=== PATIENT | female | born 1945 | race Caucasian/White ===

== ENCOUNTER 2022-12-19 08:13 | Outpatient (CLI) | payer OTHER, SELFPAY ==
[2022-12-19 14:34] LABS: Albumin* 4.6 g/dL (3.3-5.0)
[2022-12-19 14:35] LABS: Chloride* 106 mmol/L (96-114); Sodium* 141 mmol/L (135-149)
[2022-12-19 14:37] LABS: Bilirubin Total* 0.7 mg/dL (0.1-1.5); Carbon Dioxide* 26 mmol/L (20-32); Cholesterol* 238 mg/dL (90-199); Creatinine* 0.8 mg/dL (0.5-1.5); Estimated Glomerular Filt Rate 75 ml/min; Total Protein* 7.6 g/dL (6.0-8.3)
[2022-12-19 14:38] LABS: Alanine Aminotransferase* 15 U/L (4-35); Alkaline Phosphatase* 71 U/L (40-150); Aspartate Amino Transferase* 22 U/L (12-35); Blood Urea Nitrogen* 26 mg/dL (7-30); Calcium* 9.6 mg/dL (8.4-10.6); Glucose* 118 mg/dL (60-115); HDL Cholesterol* 83 mg/dL (>=50); LDL Cholesterol Calculated 122 mg/dL (<100); Potassium* 4.8 mmol/L (3.6-5.1); Triglycerides* 164 mg/dL (40-149)
[2022-12-19 15:23] LABS: TSH With Reflex to FT4* 0.985 uIU/mL (0.270-4.200)
== END 2022-12-19 08:14 | disposition home or self-care (01) ==
PROVIDERS: PCP Physician Assistant Medical; Visit Provider Physician Assistant Medical
DX: E11.9 Type 2 diabetes mellitus without complications (principal); E78.5 Hyperlipidemia, unspecified; F03.90 Unspecified dementia, unspecified severity, without behavioral disturbance, psychotic disturbance, mood disturbance, and anxiety; F41.9 Anxiety disorder, unspecified; I10 Essential (primary) hypertension; K21.9 Gastro-esophageal reflux disease without esophagitis; R79.89 Other specified abnormal findings of blood chemistry; E53.8 Deficiency of other specified B group vitamins
CPT/HCPCS: 80053; 80061; 84443

== ENCOUNTER 2024-02-13 13:46 | Emergency (ER) | payer OTHER, SELFPAY ==
[2024-02-13] VITALS (7 sets, daily range): BP systolic 164–183; BP diastolic 61–91; PULSE 59–67; TEMP 36.4; O2SAT 98–100; BMI 25.7
--- NOTE | 2024-02-13 14:09 | CT_ITS ---
Patient: SHAN BYRD Facility:?[facility] Patient ID:?[id number] Site Patient ID:?[id number]. Site :?[id number] Study:?CT-Head w/o-02/13/2024 2:50:30 PM Ordering Physician:Guevara Morris Final Report: INDICATION: Fall TECHNIQUE: Noncontrast axial CT of the head. Coronal and sagittal reformats. Bone and soft tissue algorithms. COMPARISON: MRI brain 01/02/2022 FINDINGS: Mild generalized cerebral volume loss. Scattered hypoattenuating foci throughout the supratentorial white matter, typical of mild chronic microangiopathy. No acute intracranial hemorrhage or extra-axial fluid collection. Cohn-white matter differentiation is grossly maintained. White matter attenuation is within normal limits. Calcific intracranial atherosclerotic plaquing. Empty sella configuration. Bony calvarium appears grossly intact. Hyperostosis frontalis interna. Visualized paranasal sinuses and mastoid air cells are clear. Bilateral lens implants. IMPRESSION: No skull fracture or acute intracranial hemorrhage identified. Please note that all CT scans at this facility use dose modulation, iterative reconstruction, and/or weight-based dosing when appropriate to reduce radiation dose to as low as reasonably achievable. Dictated by Remedios Ocampo MD @ 02/13/2024 3:17:08 PM Signed by:?Remedios Ocampo MD @02/13/2024 3:17:08 PM (Electronic Signature)
--- NOTE | 2024-02-13 14:11 | CT_ITS ---
Patient: SHAN BYRD Facility:?[facility] Patient ID:?[id number] Site Patient ID:?[id number]. Site :?1945 Study:?CT-Spine Cervical w/o-02/13/2024 2:50:33 PM Ordering Physician:Guevara Morris Final Report: Indication: Fall Technique: Noncontrast axial CT of the cervical spine with coronal and sagittal reformats. Comparison: Same-day CT head Findings: Straightening of the normal cervical lordosis. Trace anterolisthesis at C4-5, C5-6 and C6-7. No acute fracture identified. Craniocervical junction appears within normal limits. Bony ankylosis across the C2-3 facet joints, [id number]-right. 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 Degenerative disc changes and facet arthropathy. No high- grade neural foraminal or spinal canal stenosis. No suspicious findings identified in the paraspinal soft tissues. No apical pneumothorax. Impression: 1. No CT evidence of acute fracture or traumatic malalignment in the cervical spine. 2. Cervical spondylosis and ossification of the posterior longitudinal ligament, without high-grade neural foraminal or spinal canal stenosis. Please note that all CT scans at this facility use dose modulation, iterative reconstruction, and/or weight-based dosing when appropriate to reduce radiation dose to as low as reasonably achievable. Dictated by Remedios Ocampo MD @ 02/13/2024 3:20:40 PM Signed by:?Remedios Ocampo MD @02/13/2024 3:20:40 PM (Electronic Signature)
--- NOTE | 2024-02-13 14:11 | ED.GENADULT ---
HPI - General Adult General Chief complaint: Head Injury/Pain Stated complaint: Fall yest-hit head, loss of cons Time Seen by Provider: 02/13/24 13:48 History of Present Illness HPI narrative: Patient is a 78 year white female that has gotten up to go to the bathroom about 230 this morning and fell. She feels she might have transiently knocked herself out. She hit the back of her head. She had a small bump there are initially. She has had some mild left trapezius muscle tenderness but no really midline neck tenderness. She has been neurologically intact. She has a history of dementia. She is here with her grandson who is visiting her pretty much every day. She does live in assisted living in [place]. Initially she reported that she was on a blood thinner but does not appear to be from her medication list. She has been awake,, talking, her grandson reports she is in her usual state of health. She describes some mild low back discomfort from falling and pain in the back of her head. No focal neurologic complaints . She has a complicated history including dementia, type 2 diabetes, hypertension, hyperlipidemia, coronary artery disease with coronary artery stent, anxiety, GE reflux. Related Data Home Medications Medication Instructions Recorded Confirmed Bifidobacterium infantis 10.5 mg mg PO 09/11/23 09/11/23 (10 million cell) chewable tablet (Align) Lactobacillus cap PO 09/11/23 09/11/23 acidophilus-Bifidobac.animalis 2 billion cell capsule (TruBiotics) Previous Rx's Medication Instructions Recorded amlodipine 5 mg tablet 5 mg PO .HS #90 tabs 03/19/23 lancets #100 ea 06/25/23 sertraline 100 mg tablet 100 mg PO DAILY #90 tabs 11/27/23 lisinopril 20 mg tablet See Rx Instructions .Route 12/04/23 .COMPLEX #90 tabs metformin 500 mg tablet,extended 500 mg PO QDAY #90 tabs 12/04/23 release 24 hr omeprazole 40 mg capsule,delayed 40 mg PO QDAY #90 caps 12/04/23 release simvastatin 20 mg tablet 20 mg PO .Bedtime #90 tabs 12/04/23 blood sugar diagnostic (Accu-Chek #100 strips 01/25/24 Guide test strips) Allergies Allergy/AdvReac Type Severity Reaction Status Date / Time No Known Allergies Allergy Unknown Unknown Uncoded 10/17/23 10:35 Review of Systems Status of ROS: Reports: 6 or more systems reviewed and unremarkable except as noted in History and below PFSH FOR[facility] Medical History Amnesia ?R41.3 - Other amnesia (ICD-10) Personal history of nicotine dependence ?Z87.891 - Personal history of nicotine dependence (ICD-10) Surgical History Cataract extraction status of right eye ?Z98.41 - Cataract extraction status, right eye (ICD-10) Cataract extraction status of left eye ?Z98.42 - Cataract extraction status, left eye (ICD-10) History of tonsillectomy (01/17/11) ?Z90.89 - Acquired absence of other organs (ICD-10) History of hysterectomy (01/13/10) ?Z90.710 - Acquired absence of both cervix and uterus (ICD-10) History of coronary artery stent placement ?Z95.5 - Presence of coronary angioplasty implant and graft (ICD-10) History of colonoscopy (12/20/17) ?Z98.890 - Other specified postprocedural states (ICD-10) History of cholecystectomy ?Z90.49 - Acquired absence of other specified parts of digestive tract (ICD-10) History of cataract extraction with lens replacement History of appendectomy (01/17/11) ?Z90.49 - Acquired absence of other specified parts of digestive tract (ICD-10) Family History Other Heart disease High blood pressure Social History Narrative: Former smoker Does not use illicit drugs Consumes alcohol occasionally Smoking Status: Former smoker Little interest or pleasure in doing things: not at all Feeling down, depressed, or hopeless: several days Exam Narrative: Exam Narrative: Objective: Patient's vital signs show slightly elevated blood pressure systolic at 183, afebrile, O2 sat 100% on room air In general the patient is no apparent distress, alert orient x3, noncyanotic, responsive. HEENT shows small occipital hematoma no palpable step-off 1st fluctuance Neck is supple nontender in the midline mild trapezius muscle tenderness on the left Heart rhythm regular Abdomen benign Pelvis stable Upper lower extremities unremarkable normal strength sensation nonfocal neurologically Mild palpable low back discomfort, patient does report she feels discomfort in this area. No lower extremity findings, normal range of motion ins palpation yields no discomfort. Const: Vital Signs, click to edit/add: Vital Signs - 24 hr 02/13/24 13:54 02/13/24 14:13 02/13/24 14:15 Temperature 97.6 F Pulse Rate 62 66 Pulse Rate [Pulse Oximeter] 66 Blood Pressure Blood Pressure [Ri ght Upper Arm] 183/91 H Pulse Oximetry 100 99 98 Oxygen Delivery Me thod Room Air 02/13/24 14:30 02/13/24 14:34 02/13/24 15:13 Temperature Pulse Rate 65 67 60 Pulse Rate [Pulse Oximeter] Blood Pressure 164/61 H Blood Pressure [Ri ght Upper Arm] Pulse Oximetry 98 100 100 Oxygen Delivery Me thod 02/13/24 15:15 Temperature Pulse Rate 59 L Pulse Rate [Pulse Oximeter] Blood Pressure Blood Pressure [Ri ght Upper Arm] Pulse Oximetry 99 Oxygen Delivery Me thod Course Vital Signs Vital signs: Initial Vital Signs Temperature 97.6 F 02/13/24 13:54 Temperature Source Temporal Artery Scan 02/13/24 13:54 Pulse Rate 66 02/13/24 13:54 Pulse Rhythm Regular 02/13/24 13:54 Blood Pressure 183/91 H 02/13/24 13:54 Blood Pressure Mean 121 H 02/13/24 13:54 Blood Pressure Position Supine 02/13/24 13:54 Pulse Oximetry 100 02/13/24 13:54 Oxygen Delivery Method Room Air 02/13/24 13:54 Vital Signs Temperature 97.6 F 02/13/24 13:54 Pulse Rate 66 02/13/24 13:54 Blood Pressure 183/91 H 02/13/24 13:54 Pulse Oximetry 100 02/13/24 13:54 Oxygen Delivery Method Room Air 02/13/24 13:54 Temperature 97.6 F 02/13/24 13:54 Pulse Rate 59 L 02/13/24 15:15 Blood Pressure 164/61 H 02/13/24 14:34 Pulse Oximetry 99 02/13/24 15:15 Oxygen Delivery Method Room Air 02/13/24 13:54 Medications Administered Medications: Discontinued Medications Generic Name Dose Route Start Last Admin Trade Name Radha PRN Reason Stop Dose Admin Sodium Chloride 500 mls @ 500 mls/hr 02/13/24 14:08 02/13/24 15:51 0.9 % Sodium Chloride 500 Ml IV 02/13/24 15:07 Infused .Q1H ONE Infusion Medical Decision Making MDM Narrative Medical decision making narrative: [age] white female diabetic with dementia who was getting to the bathroom last night and apparently fell. May have been loss of consciousness transiently complains some left resist muscle pain some occipital pain and low back pain I think at this time just given the nature of her cognitive condition as well as her medical status would get a CT of her head neck for completeness, would also get a lumbar spine x-ray, will get an EKG, point of care troponin, laboratory studies disposition. Disposition pending findings. Please see addendum Addendum 3:20 p.m. patient's head and neck CT scan looks negative for acute injury. Her laboratory studies look reassuring thus far, her EKG by my read shows normal sinus rhythm with sinus arrhythmia nonspecific artifact noted. Her point of care troponin is negative. I think at this point she can safely be let go home continue present medications, recheck with regular doctor in the next couple of weeks as needed. Return sooner problems concerns difficulty. Also no rhythm arrhythmia is noted on her youth nutritional monitor Lab Data Labs: Lab Results 02/13/24 Range/Units 14:30 WBC 8.76 (4.50-11.00) K/uL RBC 4.04 (4.00-5.20) m/uL Hgb 12.6 (12.0-16.0) gm/dL Hct 37.7 (33.0-51.0) % MCV 93 (80-100) fL MCH 31 (26-34) pg MCHC 33 (32-36) gm/dL RDW Coeff of Kristy 13.9 (11.5-15.5) % Plt Count 187 (140-440) K/uL Neut % (Auto) 71.5 (42.0-72.0) % Lymph % (Auto) 20.3 (20-44) % Hendry % (Auto) 7.2 (0.0-11.0) % Eos % (Auto) 0.6 (0.0-7.0) % Baso % (Auto) 0.2 (0.0-3.0) % Neut # (Auto) 6.26 (1.7-7.0) K/uL Lymph # (Auto) 1.78 (0.90-2.90) K/uL Hendry # (Auto) 0.60 (0.00-0.90) K/UL Eos # (Auto) 0.05 (0.00-0.50) K/uL Baso # (Auto) 0.02 (0.00-0.30) K/uL Abs Immat Gran (auto) 0.02 (0.00-0.30) K/uL Imm/Tot Granulo (auto) 0.2 % INR 0.90 L (0.91-1.10) APTT 27 (23-33) Seconds POC Troponin I 0.01 (0.01-0.04) ng/ml Discharge Plan Discharge Clinical Impression: Low back pain, CHI (closed head injury), Fall Patient Disposition: Home w/ Parent or Adult Condition: Stable Additional Instructions: Light activity, Tylenol as needed, good fluid intake, ice to the low back as needed, recheck with her regular doctor next 3-4 days for reassessment certainly sooner return to ED problems or concerns or worsening. Activity Level: Light activity Prescriptions: No Action TruBiotics 2 billion cell capsule PO Align 10.5 mg (10 million cell) tablet,chewable PO amlodipine 5 mg tablet 5 mg PO .HS Qty: 90 2RF (DME) lancets Misc See Rx Instructions .Route Qty: 100 2RF Rx Instructions: Patient to test QID sertraline 100 mg tablet 100 mg PO DAILY Qty: 90 1RF lisinopril 20 mg tablet See Rx Instructions .ROUTE .COMPLEX Qty: 90 0RF Dose Instruction: TAKE 1 TABLET BY MOUTH EVERY DAY Rx Instructions: TAKE 1 TABLET BY MOUTH EVERY DAY omeprazole 40 mg capsule,delayed release(DR/EC) 40 mg PO QDAY Qty: 90 0RF simvastatin 20 mg tablet 20 mg PO .Bedtime Qty: 90 0RF metformin 500 mg tablet extended release 24 hr 500 mg PO QDAY Qty: 90 0RF (DME) Accu-Chek Guide test strips Strip See Rx Instructions .ROUTE .COMPLEX Qty: 100 0RF Dose Instruction: USE TO TEST BLOOD SUGAR 4 TIMES A DAY Rx Instructions: USE TO TEST BLOOD SUGAR 4 TIMES A DAY Follow Up/Referrals: Jong Cristina PA-C [Primary Care Provider] - Stand Alone Forms: [employer] Info Instructions
--- NOTE | 2024-02-13 14:13 | XR_ITS ---
Patient: SHAN BYRD Facility:?[facility] Patient ID:?[id number] Site Patient ID:?[id number]. Site :?[id number] Study:?XRay-Spine Lumbar 2V-02/13/2024 3:08:48 PM Ordering Physician:NEVAEH Final Report: INDICATION: FALL TECHNIQUE: Lumbar spine 1 view. COMPARISON: None. IMPRESSION: Preserved lumbar lordosis. No evidence of acute compression deformity. Grade 1 anterolisthesis L5 on S1. Anterior bridging osteophytosis at T11-L1. Mild multilevel intervertebral space narrowing. Advanced left facet arthropathy. 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 Dictated by Ben Vicente MD @ 02/13/2024 3:46:09 PM Signed by:?Ben Vicente MD @02/13/2024 3:46:09 PM (Electronic Signature)
[2024-02-13 14:43] LABS: Basophils Absolute Auto 0.02 K/uL (0.00-0.30); Basophils Percent Auto 0.2 % (0.0-3.0); Eosinophils Absolute Auto 0.05 K/uL (0.00-0.50); Eosinophils Percent Auto 0.6 % (0.0-7.0); Hematocrit 37.7 % (33.0-51.0); Hemoglobin* 12.6 gm/dL (12.0-16.0); Immature Granulocytes Abs Auto 0.02 K/uL (0.00-0.30); Immature Granulocytes Pct Auto 0.2 %; Lymphocytes Absolute Auto 1.78 K/uL (0.90-2.90); Lymphocytes Percent Auto 20.3 % (20-44); Mean Corpuscular HGB Conc 33 gm/dL (32-36); Mean Corpuscular Hemoglobin 31 pg (26-34); Mean Corpuscular Volume 93 fL (80-100); Monocytes Percent Auto 7.2 % (0.0-11.0); Neutrophils Absolute Auto 6.26 K/uL (1.7-7.0); Neutrophils Percent Auto 71.5 % (42.0-72.0); Platelet Count* 187 K/uL (140-440); RDW Coefficient of Variation % 13.9 % (11.5-15.5); Red Blood Count 4.04 m/uL (4.00-5.20); White Blood Count* 8.76 K/uL (4.50-11.00)
[2024-02-13 14:46] LABS: Troponin, Point-of-Care* 0.01 ng/ml (0.01-0.04)
[2024-02-13 14:49] LABS: Slide Review Reflex No
[2024-02-13] MEDS: 0.9 % SODIUM CHLORIDE 500 ML 500 ML IV (15:15)
[2024-02-13 15:23] LABS: Prothrombin Time 12.7 Seconds
[2024-02-13 15:24] LABS: Partial Thromboplastin Time* 27 Seconds (23-33)
[2024-02-13 16:29] LABS: Chloride* 104 mmol/L (96-114); Potassium* 4.7 mmol/L (3.6-5.1); Sodium* 136 mmol/L (135-149)
[2024-02-13 16:32] LABS: Anion Gap 9 mEq/L (7-15); Blood Urea Nitrogen* 22 mg/dL (7-30); Calcium* 9.6 mg/dL (8.4-10.6); Carbon Dioxide* 23 mmol/L (20-32); Creatinine* 0.7 mg/dL (0.5-1.5); Est. Creatinine Clearance* 39.39; Estimated Glomerular Filt Rate 88 ml/min; Glucose* 90 mg/dL (60-115)
== END 2024-02-13 15:52 | disposition home or self-care (01) ==
PROVIDERS: Emergency Provider Family Medicine; PCP Physician Assistant Medical
DX: S09.90XA Unspecified injury of head, initial encounter (principal); M54.50 Low back pain, unspecified; W19.XXXA Unspecified fall, initial encounter
CPT/HCPCS: 36415; 70450; 72100; 72125; 80048; 84484; 85025; 85610; 85730; 93005; 94761; 99284; 99285; J7030

== ENCOUNTER 2024-03-26 08:32 | Outpatient (CLI) | payer OTHER, SELFPAY | END 2024-03-26 08:33 | disposition home or self-care (01) | LOC: NFLDREF 03-27 12:50 | PROVIDERS: PCP Physician Assistant Medical; Referring Provider Physician Assistant Medical; Visit Provider Physician Assistant Medical | DX: E11.9 Type 2 diabetes mellitus without complications (principal); I10 Essential (primary) hypertension; R79.89 Other specified abnormal findings of blood chemistry; E53.8 Deficiency of other specified B group vitamins; E78.2 Mixed hyperlipidemia; Z78.0 Asymptomatic menopausal state; Z79.899 Other long term (current) drug therapy | CPT/HCPCS: 80053; 80061; 82043; 82306; 82570; 82607; 84443 ==

== ENCOUNTER 2024-10-07 08:19 | Outpatient (CLI) | payer OTHER, SELFPAY | END 2024-10-07 08:20 | disposition home or self-care (01) | LOC: NFLDREF 10-11 16:22 | PROVIDERS: PCP Physician Assistant Medical; Referring Provider Physician Assistant Medical; Visit Provider Physician Assistant Medical | DX: E78.2 Mixed hyperlipidemia (principal); E11.9 Type 2 diabetes mellitus without complications | CPT/HCPCS: 80061 ==

== ENCOUNTER 2025-03-24 13:21 | Outpatient (CLI) | payer OTHER, SELFPAY | END 2025-03-24 13:22 | disposition home or self-care (01) | LOC: NFLDREF 03-28 03:25 | PROVIDERS: PCP Physician Assistant Medical; Referring Provider Physician Assistant Medical; Visit Provider Physician Assistant Medical | DX: I10 Essential (primary) hypertension (principal); F41.9 Anxiety disorder, unspecified; E11.65 Type 2 diabetes mellitus with hyperglycemia; E78.2 Mixed hyperlipidemia; E53.8 Deficiency of other specified B group vitamins; F03.B4 Unspecified dementia, moderate, with anxiety; E55.9 Vitamin D deficiency, unspecified; Z79.84 Long term (current) use of oral hypoglycemic drugs | CPT/HCPCS: 80053; 80061; 82043; 82306; 82570; 82607; 84443 ==

== ENCOUNTER 2025-08-25 10:03 | Outpatient (CLI) | payer OTHER, SELFPAY | END 2025-08-25 10:04 | disposition home or self-care (01) | LOC: NFLDREF 08-26 17:07 | PROVIDERS: PCP Physician Assistant Medical; Referring Provider Physician Assistant Medical; Visit Provider Physician Assistant Medical | DX: E53.8 Deficiency of other specified B group vitamins (principal); E78.2 Mixed hyperlipidemia; I10 Essential (primary) hypertension; I25.10 Atherosclerotic heart disease of native coronary artery without angina pectoris; K21.9 Gastro-esophageal reflux disease without esophagitis; R79.89 Other specified abnormal findings of blood chemistry; E55.9 Vitamin D deficiency, unspecified | CPT/HCPCS: 80053; 80061; 82043; 82306; 82570; 82607; 84443 ==